=== PATIENT | male | born 1975 | race Caucasian/White ===

== ENCOUNTER 2017-10-24 18:33 | Emergency (ER) | payer OTHER ==
--- NOTE | 2017-10-24 20:03 | ER Document Report ---
ED Medical Screen (RME) - General Chief Complaint: Blurred Vision Stated Complaint: GROIN PAIN, BLURRED VISION Time Seen by Provider: 10/24/17 20:01 Mode of Arrival: Ambulatory Information source: Patient Notes: 32-year-old male presents to ED for abdominal pain left groin pain and blurred vision having trouble talking and thinking times a week. He states he was diagnosed with diverticulitis at the [place] in February. States she has never been put on any medicine and he has been hurting off and on since then. Patient has active bowel sounds moderate tenderness to the left lower quadrant. I have greeted and performed a rapid initial assessment of this patient. A comprehensive ED assessment and evaluation of the patient, analysis of test results and completion of medical decision making process will be conducted by an additional ED providers. TRAVEL OUTSIDE OF THE [place] IN LAST 30 DAYS: No - Related Data Allergies/Adverse Reactions: No Known Allergies Allergy (Verified 10/24/17 18:35) Past Medical History - Social History Chew tobacco use (# tins/day): Yes Frequency of alcohol use: Social Renal/ Medical History: Denies: Hx Peritoneal Dialysis Past Surgical History: Reports: Hx Abdominal Surgery - hernia repair Physical Exam - Vital signs Vitals: Temp Pulse Resp BP Pulse Ox 98.4 F 73 18 111/73 99 10/24/17 18:52 10/24/17 18:52 10/24/17 18:52 10/24/17 18:52 10/24/17 18:52 Course - Vital Signs Vital signs: Temp Pulse Resp BP Pulse Ox 98.4 F 73 18 111/73 99 10/24/17 18:52 10/24/17 18:52 10/24/17 18:52 10/24/17 18:52 10/24/17 18:52
[2017-10-24 21:12] LABS: ABSOLUTE BASOPHILS # (AUTO) 0.1 10^3/uL (0.0-0.2); ABSOLUTE EOSINOPHILS # (AUTO) 0.2 10^3/uL (0.0-0.6); ABSOLUTE LYMPHOCYTES (AUTO) 1.7 10^3/uL (0.5-4.7); ABSOLUTE MONOCYTES (AUTO) 0.7 10^3/uL (0.1-1.4); ABSOLUTE NEUT (AUTO) 3.4 10^3/uL (1.7-8.2); BASOPHILS % (AUTO) 1.1 % (0-2); EOSINOPHILS % (AUTO) 3.4 % (0-6); HEMATOCRIT 42.8 % (37.9-51.0); HEMOGLOBIN 15.2 g/dL (13.5-17.0); LYMPHOCYTES % (AUTO) 28.3 % (13-45); MEAN CORPUSCULAR HEMOGLOBIN 31.1 pg (27.0-33.4); MEAN CORPUSCULAR HGB CONC 35.6 g/dL (32.0-36.0); MEAN CORPUSCULAR VOLUME 87 fl (80-97); MONOCYTES % (AUTO) 11.1 % (3-13); PLATELET COUNT 217 10^3/uL (150-450); RED CELL DISTRIBUTION WIDTH 13.6 % (11.5-14.0); SEGMENTED NEUTROPHILS % (AUTO) 56.1 % (42-78); TOTAL CELLS COUNTED % (AUTO) 100 %; WHITE BLOOD COUNT 6.1 10^3/uL (4.0-10.5)
[2017-10-24 21:19] LABS: AMORPHOUS SEDIMENT,URINE TRACE /HPF; APPEARANCE,URINE CLOUDY; BILIRUBIN,URINE NEGATIVE (NEGATIVE); COLOR,URINE YELLOW; GLUCOSE, URINE NEGATIVE (NEGATIVE); KETONES,URINE NEGATIVE (NEGATIVE); LEUKOCYTE ESTERASE,URINE NEGATIVE (NEGATIVE); NITRITE,URINE NEGATIVE (NEGATIVE); PROTEIN,URINE NEGATIVE (NEGATIVE); URINE SPECIFIC GRAVITY 1.018
[2017-10-24 21:33] LABS: ALANINE AMINOTRANSFERASE 41 U/L (21-72); ALBUMIN 4.6 g/dL (3.5-5.0); ALKALINE PHOSPHATASE 49 U/L (38-126); ANION GAP 9 (5-19); ASPARTATE AMINO TRANSFERASE 28 U/L (17-59); BILIRUBIN,DIRECT 0.4 mg/dL (0.0-0.4); BILIRUBIN,TOTAL 0.6 mg/dL (0.2-1.3); BLOOD UREA NITROGEN 14 mg/dL (7-20); CALCIUM 10.6 mg/dL (8.4-10.2); CARBON DIOXIDE 31 mmol/L (22-30); CHLORIDE 101 mmol/L (98-107); GLUCOSE 99 mg/dL (75-110); POTASSIUM 3.8 mmol/L (3.6-5.0); SODIUM 141.3 mmol/L (137-145)
--- NOTE | 2017-10-24 22:23 | ER Document Report ---
ED General - General Chief Complaint: Blurred Vision Stated Complaint: GROIN PAIN, BLURRED VISION Time Seen by Provider: 10/24/17 20:01 Mode of Arrival: Ambulatory Information source: Patient TRAVEL OUTSIDE OF THE [place] IN LAST 30 DAYS: No - HPI Patient complains to provider of: Pain in left side of abdomen Onset: Other - few days ago Onset/Duration: Gradual Quality of pain: Stabbing Severity: Moderate Associated symptoms: denies: Chest pain, Chills, Nonproductive cough, Productive cough, Diarrhea, Drooling, Fever, Headache, Hurts to breath, Nausea, Vomiting, Shortness of breath, Sweating, Weakness Exacerbated by: Movement Relieved by: Denies Similar symptoms previously: Yes - h/o diverticulitis Recently seen / treated by doctor: No Notes: 42-year-old male presents with left lower quadrant pain for the last week. He states it is sharp in nature and intermittent. No associated symptoms. States the discomfort does radiate down to his left testicle. No swelling or trauma to his testicle. Patient states he did feel a mass in his left testicle a few days ago he has not addressed it with his doctor yet. - Related Data Allergies/Adverse Reactions: No Known Allergies Allergy (Verified 10/24/17 18:35) Past Medical History - General Information source: Patient - Social History Smoking Status: Never Smoker Chew tobacco use (# tins/day): Yes Frequency of alcohol use: None Drug Abuse: None Lives with: Family Family History: Reviewed & Not Pertinent Patient has suicidal ideation: No Patient has homicidal ideation: No - Past Medical History Cardiac Medical History: Reports: None Pulmonary Medical History: Reports: None EENT Medical History: Reports: None Neurological Medical History: Reports: None Endocrine Medical History: Reports: None Renal/ Medical History: Reports: None. Denies: Hx Peritoneal Dialysis Malignancy Medical History: Reports None GI Medical History: Reports: Hx Diverticulitis Musculoskeltal Medical History: Reports Other - Fibromyalgia Skin Medical History: Reports None Psychiatric Medical History: Reports: None Traumatic Medical History: Reports: None Infectious Medical History: Reports: None Past Surgical History: Reports: Hx Abdominal Surgery - hernia repair years ago Review of Systems - Review of Systems Constitutional: No symptoms reported EENT: Blurred vision - Resolved Cardiovascular: No symptoms reported Respiratory: No symptoms reported Gastrointestinal: See HPI Genitourinary: No symptoms reported Male Genitourinary: Testicular pain - Left Musculoskeletal: Back pain - Chronic due to fibromyalgia Skin: No symptoms reported Neurological/Psychological: No symptoms reported Physical Exam - Vital signs Vitals: Temp Pulse Resp BP Pulse Ox 98.4 F 73 18 111/73 99 10/24/17 18:52 10/24/17 18:52 10/24/17 18:52 10/24/17 18:52 10/24/17 18:52 - Notes Notes: PHYSICAL EXAMINATION: GENERAL: Well-appearing, well-nourished and in no acute distress. HEAD: Atraumatic, normocephalic. EYES: Pupils equal round and reactive to light, extraocular movements intact, sclera anicteric, conjunctiva are normal. ENT: Nares patent, oropharynx clear without exudates. Moist mucous membranes. NECK: Normal range of motion, supple without lymphadenopathy LUNGS: Breath sounds clear to auscultation bilaterally and equal. No wheezes rales or rhonchi. HEART: Regular rate and rhythm without murmurs ABDOMEN: Soft, very mild tenderness with deep palpation to the left lower quadrant, nondistended abdomen. No guarding, no rebound. No masses appreciated. Musculoskeletal: Normal range of motion, no pitting or edema. No cyanosis. : Patient has normal external male genitalia. Left testicle is not tender swollen. Scrotal sac is not erythematous. Patient has a less than 1 cm hardened entity in his left scrotal sac. It is nontender. NEUROLOGICAL: Cranial nerves grossly intact. Normal speech, normal gait. Normal sensory, motor exams PSYCH: Normal mood, normal affect. SKIN: Warm, Dry, normal turgor, no rashes or lesions noted. Course - Re-evaluation Re-evalutation: 10/24/17 22:23 Labs- All tests 24 hr 10/24/17 10/24/17 10/24/17 20:42 20:42 20:46 WBC 6.1 RBC 4.90 Hgb 15.2 Hct 42.8 MCV 87 MCH 31.1 MCHC 35.6 RDW 13.6 Plt Count 217 Seg Neutrophils % 56.1 Lymphocytes % 28.3 Monocytes % 11.1 Eosinophils % 3.4 Basophils % 1.1 Absolute Neutrophils 3.4 Absolute Lymphocytes 1.7 Absolute Monocytes 0.7 Absolute Eosinophils 0.2 Absolute Basophils 0.1 Sodium 141.3 Potassium 3.8 Chloride 101 Carbon Dioxide 31 H Anion Gap 9 BUN 14 Creatinine 0.90 Est GFR ( Amer) > 60 Est GFR (Non-Af Amer) > 60 Glucose 99 Calcium 10.6 H Total Bilirubin 0.6 Direct Bilirubin 0.4 Neonat Total Bilirubin Not Reportable Neonat Direct Bilirubin Not Reportable Neonat Indirect Bili Not Reportable AST 28 ALT 41 Alkaline Phosphatase 49 Total Protein 7.0 Albumin 4.6 Urine Color YELLOW Urine Appearance CLOUDY Urine pH 6.0 Ur Specific [place] 1.018 Urine Protein NEGATIVE Urine Glucose (UA) NEGATIVE Urine Ketones NEGATIVE Urine Blood NEGATIVE Urine Nitrite NEGATIVE Urine Bilirubin NEGATIVE Urine Urobilinogen 2.0 H Ur Leukocyte Esterase NEGATIVE Urine WBC (Auto) 8 Urine RBC (Auto) 1 Amorphous Sediment Auto TRACE Urine Mucus (Auto) OCC Urine Ascorbic Acid NEGATIVE 10/24/17 22:23 Talk to the patient. He follows up at the [facility]. I told him he needed an outpatient ultrasound of his testicles. Patient verbalized understanding he stated he follow-up with his doctor. 10/24/17 23:49 Abdomen/Pelvis CT 10/24/17 22:15 IMPRESSION: Mild mesenteric adenitis, nonspecific. - Vital Signs Vital signs: Temp Pulse Resp BP Pulse Ox 98.4 F 73 18 111/73 99 10/24/17 18:52 10/24/17 18:52 10/24/17 18:52 10/24/17 18:52 10/24/17 18:52 - Laboratory Result Diagrams: 10/24/17 20:42 10/24/17 20:42 Laboratory results interpreted by me: 10/24/17 10/24/17 20:42 20:46 Carbon Dioxide 31 H Calcium 10.6 H Urine Urobilinogen 2.0 H Discharge - Discharge Clinical Impression: Mesenteric adenitis Condition: Stable Disposition: HOME, SELF-CARE Instructions: Abdominal Pain ([facility]) Additional Instructions: Follow up with your physician tomorrow for further care or return to the ED IMMEDIATELY if symptoms worsen or new concerns occur. If you cannot afford to follow up with your primary care physician a list of low cost clinics have been provided at the end of your discharge papers as well. Follow-up the primary medical doctor for an outpatient ultrasound regarding your left testicular complaints.
--- NOTE | 2017-10-24 23:44 | RADIOLOGY REPORT (SQ) ---
EXAM DESCRIPTION: CT ABD/PELVIS NO ORAL OR IV COMPLETED DATE/TIME: 10/24/2017 11:06 pm REASON FOR STUDY: LLQ pain COMPARISON: None. TECHNIQUE: CT scan of the abdomen and pelvis performed without intravenous or oral contrast. Images reviewed with lung, soft tissue, and bone windows. Reconstructed coronal and sagittal MPR images revi ewed. All images stored on PACS. All CT scanners at this facility use dose modulation, iterative reconstruction, and/or weight based d osing when appropriate to reduce radiation dose to as low as reasonably achievable (ALARA). [facility]: Dose Right [facility]: CareDose [facility]: Dose Right [facility]: Teradose 4D [facility]: Smart [employer] RADIATION DOSE: CT Rad equipment meets quality standard of care and radiation dose reduction techniq ues were employed. CTDIvol: 6.2 mGy. DLP: 338 mGy-cm.mGy. LIMITATIONS: None. FINDINGS: LOWER CHEST: No significant findings. No nodules or infiltrates. NON-CONTRASTED LIVER, SPLEEN, ADRENALS: Evaluation limited by lack of IV contrast. No identified sign ificant masses. PANCREAS: No masses. No peripancreatic inflammatory changes. GALLBLADDER: No identified stones by CT criteria. No inflammatory changes to suggest cholecystitis. RIGHT KIDNEY AND URETER: No suspicious masses. Assessment limited by lack of IV contrast. No signif icant calcifications. No hydronephrosis or hydroureter. LEFT KIDNEY AND URETER: No suspicious masses. Assessment limited by lack of IV contrast. No signifi cant calcifications. No hydronephrosis or hydroureter. AORTA AND RETROPERITONEUM: No aneurysm. No retroperitoneal masses or adenopathy. BOWEL AND PERITONEAL CAVITY: Mild mesenteric adenitis, nonspecific. No obstruction or free fluid. APPENDIX: Normal. PELVIS, BLADDER, AND ABDOMINAL WALL:No abnormal masses. No free fluid. Bladder normal. BONES: No significant findings. OTHER: No other significant finding. IMPRESSION: Mild mesenteric adenitis, nonspecific. COMMENT: Quality ID # [id number]: Final reports with documentation of one or more dose reduction techniques (e.g., Automated exposure control, adjustment of the mA and/or kV according to patient size, use of iterative reconstruction technique) TECHNICAL DOCUMENTATION: JOB ID: [id number] [place]-72 2010 [employer]- All Rights Reserved
[2017-10-25 00:11] VITALS: BP 118/75
== END 2017-10-25 00:10 | disposition home or self-care (01) ==
LOC: ER 18:33
DX: I88.0 Nonspecific mesenteric lymphadenitis (principal); R10.32 Left lower quadrant pain; N50.89 Other specified disorders of the male genital organs; N50.812 Left testicular pain; M79.7 Fibromyalgia
CPT/HCPCS: 36415; 74176; 80053; 81001; 85025; 87040; 99284

== ENCOUNTER 2018-03-28 06:57 | Day surgery (SDC) | payer OTHER ==
[2018-03-21 09:19] LABS: HEMATOCRIT 43.6 % (37.9-51.0); HEMOGLOBIN 15.3 g/dL (13.5-17.0); MEAN CORPUSCULAR HEMOGLOBIN 31.2 pg (27.0-33.4); MEAN CORPUSCULAR HGB CONC 35.2 g/dL (32.0-36.0); MEAN CORPUSCULAR VOLUME 89 fl (80-97); PLATELET COUNT 193 10^3/uL (150-450); RED BLOOD COUNT 4.92 10^6/uL (4.35-5.55); RED CELL DISTRIBUTION WIDTH 13.7 % (11.5-14.0); WHITE BLOOD COUNT 5.5 10^3/uL (4.0-10.5)
[~2018-03-28 06:57] MED LIST: ACETAMINOPHEN 325 MG TABLET PO PRN; CEFAZOLIN 2 GM/D5W RTU 2 GM/50 ML RTUPB IV PRN; RINGERS SOLUTION,LACTATED 1,000 ML IV PRN
[2018-03-28] MEDS ORDERED: BUPIVACAINE HCL 0.25 % INJ/PF (2.5 MG/1 ML) 30 ML VIAL ONE (07:25)
[2018-03-28] MEDS ORDERED: FENTANYL CITRATE INJ/PF 250 MCG/5 ML AMPULE ONE (10:05)
[2018-03-28] MEDS ORDERED: EPHEDRINE SULFATE INJ 50 MG/1 ML AMPULE ONE (10:06)
[2018-03-28] MEDS ORDERED: MIDAZOLAM 2 MG/2 ML INJ ONE (10:06)
[2018-03-28] MEDS ORDERED: DEXMEDETOMIDINE INJ 80 MCG/20 ML VIAL IV ONE (10:06)
[2018-03-28] MEDS ORDERED: PROPOFOL INJ 200 MG/20 ML VIAL IV ONE (10:06)
[2018-03-28] MEDS ORDERED: ACETAMINOPHEN 1,000 MG/100 ML RTUPB IV ONE (10:06)
[2018-03-28] MEDS ORDERED: ONDANSETRON HCL INJ/PF 4 MG/2 ML SDV IV PRN (11:03)
[2018-03-28] MEDS ORDERED: DIPHENHYDRAMINE HCL 50 MG/ML VIAL IV PRN (11:03)
[2018-03-28] MEDS ORDERED: PROMETHAZINE HCL INJ 25 MG/1 ML VIAL IV PRN ×2 (11:03)
[2018-03-28] MEDS ORDERED: MEPERIDINE HCL/PF INJ 25 MG/1 ML DISP.SYRIN IV PRN (11:03)
[2018-03-28] MEDS ORDERED: MORPHINE SULFATE 10 MG/ML INJ IV PRN (11:03)
[2018-03-28] MEDS ORDERED: FENTANYL CITRATE INJ/PF 100 MCG/2 ML AMPUL IV PRN ×3 (11:03)
[2018-03-28] MEDS: FENTANYL CITRATE INJ/PF 100 MCG/2 ML AMPUL ONE ×2 (12:58→13:08)
[2018-03-28] MEDS ORDERED: LIDOCAINE 2% INJ-PF (20 MG/ML) 10 ML AMPUL ONE (12:58)
[2018-03-28] MEDS ORDERED: HYDROCODONE/ACETAMINOPHEN 10-325 MG TABLET PO PRN (13:05)
--- NOTE | 2018-03-28 13:08 | Operative Report ---
Nonrecallable Operative Report DATE OF SURGERY: 03/28/18 PREOPERATIVE DIAGNOSIS: Left inguinal hernia, possible right inguinal hernia. POSTOPERATIVE DIAGNOSIS: Bilateral inguinal hernia. OPERATION: Bilateral robot-assisted laparoscopic inguinal hernia repair with mesh SURGEON: DAVID ALAS 1ST PROGRAMMING INSTRUCTOR: ROSALINDA SMITH ANESTHESIA: GA TISSUE REMOVED OR ALTERED: None COMPLICATIONS: None apparent ESTIMATED BLOOD LOSS: Minimal PROCEDURE: Drains/implants: Right and left large 3 DMax inguinal hernia mesh. Procedure in detail: After informed consent was obtained, the patient was brought into the operating room and laid in the supine position. The abdomen was prepped and draped in a normal sterile fashion. A supraumbilical incision was created. Dissection was carried through the subcutaneous tissue using blunt means. The linea alba fascia was incised sharply. The abdomen was entered sharply. The balloon trocar was inserted, and pneumoperitoneum was achieved. 2 8 mm robotic trochars were placed in the lateral abdominal wall, bilaterally. The robot was then brought over the patient and docked appropriately. I then assumed my position at the surgeon's console. Dissection was begun in the right groin. The peritoneum was opened 2-3 cm superior to the hernia defect. The preperitoneal dissection was undertaken using sharp dissection, blunt dissection, and electrocautery. The hernia sac was dissected free from the cord structures, taking great care not to injure the cord structures. Once the hernia sac was dissected free, a large right-sided 3D max inguinal hernia mesh was placed into the preperitoneal space. It was sutured medially and superiorly. This was done with 2-0 Vicryl suture. This was complete the peritoneum was closed using 2-0 V lock suture. The right side was then inspected, and found to be in good order. Attention was then turned to the left side. The sigmoid colon was adherent to the left anterior abdominal wall. The sigmoid colon was dissected free from the abdominal wall sharply. Next, the peritoneum was scored 2-3 cm superior to the inguinal hernia defect. The dissection was carried out in the peritoneal space using sharp dissection, blunt dissection, and electrocautery. The hernia sac was dissected free of the cord structures very carefully. A moderate lipoma of the cord was removed from the defect. A large left-sided 3 DMax inguinal hernia mesh was then placed into the preperitoneal space. The mesh was found to lie over the defect appropriately. The mesh was sutured to the abdominal wall medially and superiorly using 2-0 Vicryl suture. Once this was complete, the peritoneum was closed using 2-0 V lock suture in simple running fashion. Bilateral groins were then inspected. The repairs appeared to be in good order. The robot was undocked, and attention was turned to closure. The trochars were removed, and pneumoperitoneum was relieved. The supraumbilical fascia was closed using 0 Vicryl suture in [id number] fashion. The overlying skin was closed using 4-0 Vicryl Rapide suture in subcuticular fashion. All sponge, instrument, and needle counts were correct 2. Condition: Stable. Rosalinda Smith PA-C was scrubbed and present the entirety of the procedure. She assisted with all portions of the procedure including placement of the trochars, docking of the robot, exchanging of the robotic instruments, closure of the fascia, and closure of the skin.
--- NOTE | 2018-03-28 13:10 | Discharge Summary ---
Discharge Summary (SDC) - Discharge Final Diagnosis: bilateral inguinal hernia Date of Surgery: 03/28/18 Discharge Date: 03/28/18 Condition: Stable Referrals: LADARIUS TALAVERA PA [Primary Care Provider] - Discharge Diet: As Tolerated Respiratory Treatments at Home: Deep Breathing/Coughing, Incentive Spirometer Discharge Activity: No Lifting Over 10 Pounds Home Care Assistance: None Needed Report the Following to Your Physician Immediately: Shortness of Breath, Nausea , Vomiting, Increase in Pain, Fever over 101 Degrees, Unusual Bleeding, Redness , Swelling, Warmth
[2018-03-28] MEDS ORDERED: DEXAMETHASONE SOD PHOSPHATE INJ 4 MG/1 ML VIAL ONE (14:39)
[2018-03-28] MEDS ORDERED: ROCURONIUM BROMIDE INJ 50 MG/5 ML VIAL IV ONE (14:39)
[2018-03-28] MEDS ORDERED: GLYCOPYRROLATE 1 MG/5 ML SYRINGE ONE (14:39)
[2018-03-28] MEDS ORDERED: KETOROLAC TROMETHAMINE 60 MG/2 ML SDV ONE (14:39)
[2018-03-28] MEDS ORDERED: SUCCINYLCHOLINE CHLORIDE INJ 200 MG/10 ML VIAL ONE (14:39)
[2018-03-28] MEDS ORDERED: ONDANSETRON HCL INJ/PF 4 MG/2 ML SDV ONE (14:39)
[2018-03-28] MEDS ORDERED: METOCLOPRAMIDE HCL INJ/PF 10 MG/2 ML SDV ONE (14:39)
[2018-03-28] MEDS ORDERED: NEOSTIGMINE METHYLSULFATE 10 MG/10 ML VIAL ONE (14:39)
[2018-03-28 15:46] VITALS: BP 116/64
== END 2018-03-28 15:40 | disposition home or self-care (01) ==
LOC: OROUT 06:57 → MERGE 09:30 → OROUT 15:40
PROVIDERS: ATTEND Surgery
DX: Z01.818 Encounter for other preprocedural examination (principal); K40.90 Unilateral inguinal hernia, without obstruction or gangrene, not specified as recurrent
CPT/HCPCS: 49650; S2900; 36415; 840; 85027; J0131; J0330; J0690; J1100; J1885; J2250; J2405; J2704; J2765; J3010; J3490